=== PATIENT | female | born 1955 | race Caucasian/White ===

== ENCOUNTER 2020-05-10 13:05 | Observation (INO) ==
[2020-05-10] MEDS ORDERED: ASPIRIN CHEW 324 MG PO STA (14:01)
--- NOTE | 2020-05-10 14:18 | XRay Report ---
SINGLE VIEW CHEST CLINICAL HISTORY: Atypical chest pain. FINDINGS: An AP, portable, upright chest radiograph is compared to study dated 06/06/2015. The cardiom ediastinal silhouette is unremarkable. The lungs and pleural spaces are clear. No pneumothorax is see n. The skeletal structures are osteopenic. The bony thorax is grossly intact. IMPRESSION: No active disease in the chest. ACT 112: Negative or not required by law. Electronically signed by: Robin Jimenez M.D. 05/10/2020 2:17 PM
[2020-05-10 14:31] LABS: Basophils # (auto) 0.02 K/uL (0-0.2); Basophils % (auto) 0.2 %; Eosinophils # (auto) 0.24 K/uL (0-0.5); Eosinophils % (auto) 2.3 %; Hematocrit (blood only) 40.3 % (37-47); Immature Granulocytes # (auto) 0.03 K/uL (0.00-0.02); Immature Granulocytes % (auto) 0.3 %; Lymphocytes # (auto) 3.42 K/uL (1.2-3.4); Lymphocytes % (auto) 32.9 %; Mean Corpuscular Hemoglobin 30.4 pg (25-34); Mean Corpuscular Hgb Conc 34.7 g/dL (32-36); Mean Corpuscular Volume 87.4 fL (80-100); Mean Platelet Volume 9.3 fL (7.4-10.4); Monocytes # (auto) 0.71 K/uL (0.11-0.59); Monocytes % (auto) 6.8 %; Neutrophils # (auto) 5.99 K/uL (1.4-6.5); Neutrophils % (auto) 57.5 %; Platelet Count 319 K/uL (130-400); RDW Coefficient of Variation 14.1 % (11.5-14.5); Red Blood Count 4.61 M/uL (4.2-5.4); White Blood Count 10.41 K/uL (4.8-10.8)
--- NOTE | 2020-05-10 14:41 | Emergency Department Note ---
History of Present Illness General Chief complaint: Cardiac Assessment Stated complaint: CHEST TIGHTNESS Time Seen by Provider: 05/10/20 13:46 Source: patient History of Present Illness Provider complaint: Chest discomfort Onset (ago): day(s) Location: chest Radiation: back Severity: moderate Pain Consistency: + intermittent and + now resolved Quality: + other (Heaviness) Exacerbated By: + other (Exertion) Associated symptoms: + shortness of breath; no cough, no diaphoresis, no fever/chills and no nausea/vomiting This is a 64-year-old female presents with chest discomfort intermittently for the past 5 days. The patient describes it as a heaviness in the middle of her chest. It radiates slightly to her back but does not radiate anywhere else. It seems to be worse when she exerts herself such as climbing the stairs or walking a long distance. It is associated with shortness of breath and a feeling of warmth but no diaphoresis. She started having chest pain this morning when she woke up approximately 5 PM. She was sitting at her desk today and it got worse. She did see her well servicing rig operator last Saturday who scheduled an echocardiogram for 2 days from now when she mentioned the chest discomfort. He did also increase her blood pressure medications. The patient is not having any chest discomfort at this time. She does have a history of CHF but denies any history of CAD. There is a strong family history of CAD. She denies any fever, cough or cold symptoms, abdominal pain, vomiting, diarrhea, urinary symptoms or known exposure to COVID-19. She has never smoked. Home Medications Medication Instructions Recorded Confirmed Type carvedilol 25 mg PO BID 05/10/20 05/10/20 History citalopram 20 mg PO BID 05/10/20 05/10/20 History clobetasol See Rx Instructions .ROUTE .COMPLEX 05/10/20 05/10/20 History fexofenadine [Vidya] 180 mg PO DAILY 05/10/20 05/10/20 History fluticasone propionate 2 spray INTRANASAL DAILY 05/10/20 05/10/20 History furosemide 20 mg PO DAILY 05/10/20 05/10/20 History losartan 25 mg PO DAILY 05/10/20 05/10/20 History pedi multivit no.7-folic acid 1 tab PO BID 05/10/20 05/10/20 History [Flintstones Tab Chew] spironolactone 12.5 mg PO DAILY 05/10/20 05/10/20 History Allergies Allergy/AdvReac Type Severity Reaction Status Date / Time Sulfa (Sulfonamide Allergy Severe EDEMA OF Verified 05/10/20 19:03 Antibiotics) FACE, LIPS, TONGUE amoxicillin Allergy Intermediate HIVES Verified 05/10/20 19:03 Penicillins Allergy Intermediate SWELLING Verified 05/10/20 19:03 OF BOTTOM LIP, HIVES sertraline Allergy Mild Rash Verified 05/10/20 19:03 bupropion [From Wellbutrin] Allergy Unknown ON [facility] MED Verified 05/10/20 19:03 LIST silver sulfadiazine Allergy Unknown UNKNOWN--NOT Verified 05/10/20 19:03 ON [facility] LIST Slqaham-[id number]-Uog Reductase AdvReac Intermediate Muscle Pain Verified 05/10/20 19:03 Inhibitor Past Med/Surg History Medical History (Updated 05/10/20 @ 20:22 by Compa Stanley MD) Anxiety Congestive heart failure Depression Diabetes Dyslipidemia History of diabetes mellitus Pt reports resolved s/p gastric bypass surgery Hypertension Intestinal postoperative nonabsorption Statin intolerance Surgical History (Updated 05/10/20 @ 17:55 by Sally Narvaez PA-C) History of cardiac cath normal coronaries - 2009 History of gastric bypass History of tubal ligation Social History Smoking Status: Never smoker Hx Alcohol Use: No Hx Substance Use: No Communication Ability: Effective Beliefs That Will Affect Care: None Current Living Situation: Spouse Other Information That Helps Us Care for You: No Feels Safe at Home: Yes Safety Concerns: Feels Safe At This Time Assistive Devices: Glasses Review of Systems See HPI for pertinent positives & negatives. and A total of 10 systems reviewed and were otherwise negative Physical Exam Vital Signs Vital Signs - 24 hr 05/10/20 13:09 05/10/20 14:13 05/10/20 14:18 Temperature 36.2 C L Temperature Source Oral Pulse Rate 96 H 89 81 Pulse Rate from SpO2 Sensor 80 Respiratory Rate 18 19 21 Blood Pressure 110/76 124/77 Blood Pressure Mean 87 92 Pulse Oximetry 97 96 Oxygen Delivery Method Room Air Sepsis Recent Fever Within 48 Hours No Sepsis New/Unexplained Change in Mental Status No Sepsis Action Taken by Nursing No Action Required 05/10/20 14:20 05/10/20 14:30 05/10/20 14:40 Temperature Temperature Source Pulse Rate 81 82 82 Pulse Rate from SpO2 Sensor 81 82 82 Respiratory Rate 22 17 20 Blood Pressure 128/78 Blood Pressure Mean 94 Pulse Oximetry 95 96 95 Oxygen Delivery Method Sepsis Recent Fever Within 48 Hours Sepsis New/Unexplained Change in Mental Status Sepsis Action Taken by Nursing 05/10/20 14:50 05/10/20 15:00 05/10/20 15:05 Temperature Temperature Source Pulse Rate 80 78 Pulse Rate from SpO2 Sensor 81 79 Respiratory Rate 20 19 Blood Pressure 130/86 Blood Pressure Mean 100 Pulse Oximetry 96 96 100 Oxygen Delivery Method Room Air Sepsis Recent Fever Within 48 Hours Sepsis New/Unexplained Change in Mental Status Sepsis Action Taken by Nursing 05/10/20 15:10 05/10/20 15:20 05/10/20 15:30 Temperature Temperature Source Pulse Rate 77 82 79 Pulse Rate from SpO2 Sensor 77 83 79 Respiratory Rate 21 22 19 Blood Pressure 132/84 Blood Pressure Mean 100 Pulse Oximetry 96 96 96 Oxygen Delivery Method Sepsis Recent Fever Within 48 Hours Sepsis New/Unexplained Change in Mental Status Sepsis Action Taken by Nursing 05/10/20 15:40 05/10/20 15:50 05/10/20 16:00 Temperature Temperature Source Pulse Rate 78 77 76 Pulse Rate from SpO2 Sensor 78 77 77 Respiratory Rate 18 17 19 Blood Pressure 137/92 Blood Pressure Mean 107 Pulse Oximetry 96 97 96 Oxygen Delivery Method Sepsis Recent Fever Within 48 Hours Sepsis New/Unexplained Change in Mental Status Sepsis Action Taken by Nursing 05/10/20 16:10 05/10/20 16:20 Temperature Temperature Source Pulse Rate 79 75 Pulse Rate from SpO2 Sensor 79 75 Respiratory Rate 19 Blood Pressure Blood Pressure Mean Pulse Oximetry 96 96 Oxygen Delivery Method Sepsis Recent Fever Within 48 Hours Sepsis New/Unexplained Change in Mental Status Sepsis Action Taken by Nursing Constitutional: Vital signs reviewed. Eyes: Pupils are equal round reactive to light. Conjunctiva are noninjected. ENT: Pharynx is clear without erythema or exudate. Mucous membranes are moist. Neck supple without meningeal signs. Respiratory: Clear to auscultation bilaterally. Breath sounds are equal bilaterally. Cardiovascular: Regular rate and rhythm. No rubs or gallops. GI: Soft, nondistended and nontender. Bowel sounds are present. Musculoskeletal: No peripheral edema. No lower extremity tenderness. Integumentary: No cyanosis. or jaundice. Neurological: The patient is awake and alert. No focal deficits. Psychiatric: Normal affect. Not anxious appearing. Course Administered Medications Discontinued Medications Aspirin (Aspirin Chew 324 Mg) 324 mg PO NOW STA Stop: 05/10/20 14:02 Last Admin: 05/10/20 14:12 Dose: 324 mg Documented by: [id number] Medical Decision Making Differential Diagnosis Unstable angina, CA, GERD, anxiety, pleurisy Medical Records Attestation: I reviewed the patient's medical records. I did perform a limited focused review of portions of the patient's old chart on the electronic medical record. The patient has had no recent pertinent visits to this hospital. Home Medications Current Medication List: was personally reviewed by me Laboratory Data Attestation: I reviewed the patient's lab results. Result diagrams: 05/10/20 13:17 05/10/20 13:17 Lab Results 05/10/20 05/10/20 05/10/20 Range/Units 13:17 13:17 13:17 WBC 10.41 (4.8-10.8) K/uL RBC 4.61 (4.2-5.4) M/uL Hgb 14.0 (12.0-16.0) g/dL Hct 40.3 (37-47) % MCV 87.4 (80-100) fL MCH 30.4 (25-34) pg MCHC 34.7 (32-36) g/dL RDW Std Deviation 45.0 (36.4-46.3) fL RDW Coeff of Andrea 14.1 (11.5-14.5) % Plt Count 319 (130-400) K/uL MPV 9.3 (7.4-10.4) fL Immature Gran % (Auto) 0.3 % Neut % (Auto) 57.5 % Lymph % (Auto) 32.9 % [place] % (Auto) 6.8 % Eos % (Auto) 2.3 % Baso % (Auto) 0.2 % Neut # (Auto) 5.99 (1.4-6.5) K/uL Lymph # (Auto) 3.42 H (1.2-3.4) K/uL [place] # (Auto) 0.71 H (0.11-0.59) K/uL Eos # (Auto) 0.24 (0-0.5) K/uL Baso # (Auto) 0.02 (0-0.2) K/uL Immature Gran # (Auto) 0.03 H (0.00-0.02) K/uL PT 9.6 (9.0-12.0) Seconds INR 0.9 (0.9-1.1) APTT 28.0 (21.0-31.0) Seconds PTT Ratio 1.1 Sodium 138 (136-145) mmol/L Potassium 3.7 (3.5-5.1) mmol/L Chloride 106 (98-107) mmol/L Carbon Dioxide 26 (21-32) mmol/L Anion Gap 6.0 (3-11) BUN 19 H (7-18) mg/dl Creatinine 0.85 (0.6-1.2) mg/dl Est Cr Clr Drug Dosing 68.4 ml/min Est GFR ( Amer) 84.5 Est GFR (Non-Af Amer) 72.9 BUN/Creatinine Ratio 22.2 H (10-20) Glucose 135 H (70-99) mg/dl Calcium 9.2 (8.5-10.1) mg/dl Total Bilirubin 0.3 (0.2-1) mg/dl AST 17 (15-37) U/L ALT 29 (12-78) U/L Alkaline Phosphatase 133 H (45-117) U/L Troponin I < 0.015 (0-0.045) ng/ml Total Protein 7.2 (6.4-8.2) gm/dl Albumin 3.9 (3.4-5.0) gm/dl Globulin 3.3 (2.5-4.0) gm/dl Albumin/Globulin Ratio 1.2 (0.9-2) Lipase 119 (73-393) U/L COVID-19 Eval Order SARS-CoV-2, RNA, NAAT (NEGATIVE) 05/10/20 05/10/20 Range/Units 15:22 15:22 WBC (4.8-10.8) K/uL RBC (4.2-5.4) M/uL Hgb (12.0-16.0) g/dL Hct (37-47) % MCV (80-100) fL MCH (25-34) pg MCHC (32-36) g/dL RDW Std Deviation (36.4-46.3) fL RDW Coeff of Andrea (11.5-14.5) % Plt Count (130-400) K/uL MPV (7.4-10.4) fL Immature Gran % (Auto) % Neut % (Auto) % Lymph % (Auto) % [place] % (Auto) % Eos % (Auto) % Baso % (Auto) % Neut # (Auto) (1.4-6.5) K/uL Lymph # (Auto) (1.2-3.4) K/uL [place] # (Auto) (0.11-0.59) K/uL Eos # (Auto) (0-0.5) K/uL Baso # (Auto) (0-0.2) K/uL Immature Gran # (Auto) (0.00-0.02) K/uL PT (9.0-12.0) Seconds INR (0.9-1.1) APTT (21.0-31.0) Seconds PTT Ratio Sodium (136-145) mmol/L Potassium (3.5-5.1) mmol/L Chloride (98-107) mmol/L Carbon Dioxide (21-32) mmol/L Anion Gap (3-11) BUN (7-18) mg/dl Creatinine (0.6-1.2) mg/dl Est Cr Clr Drug Dosing ml/min Est GFR ( Amer) Est GFR (Non-Af Amer) BUN/Creatinine Ratio (10-20) Glucose (70-99) mg/dl Calcium (8.5-10.1) mg/dl Total Bilirubin (0.2-1) mg/dl AST (15-37) U/L ALT (12-78) U/L Alkaline Phosphatase (45-117) U/L Troponin I (0-0.045) ng/ml Total Protein (6.4-8.2) gm/dl Albumin (3.4-5.0) gm/dl Globulin (2.5-4.0) gm/dl Albumin/Globulin Ratio (0.9-2) Lipase (73-393) U/L COVID-19 [facility] SARS-CoV-2, RNA, NAAT NEGATIVE (NEGATIVE) Imaging Data Radiologist's Impression: SINGLE VIEW CHEST CLINICAL HISTORY: Atypical chest pain. FINDINGS: An AP, portable, upright chest radiograph is compared to study dated 06/06/2015. The cardiomediastinal silhouette is unremarkable. The lungs and pleural spaces are clear. No pneumothorax is seen. The skeletal structures are osteopenic. The bony thorax is grossly intact. IMPRESSION: No active disease in the chest. ACT 112: Negative or not required by law. Electronically signed by: Robin Jimenez M.D. 05/10/2020 2:17 PM Dictated: 05/10/201416 Transcribed: 05/10/201416 ECG Data Attestation: I personally reviewed and interpreted this ECG as follows: Indication: + chest pain Rate (beats per minute): 81 Rhythm: + normal sinus ECG [place]: + Normal ECG ST segments: no ST elevation ECG Findings: + Other (Flattened T waves in the anterior and lateral leads.); no PVCs Comparison ECG Date: from (June 06, 2015) Change: the following changes noted (Prolonged QT was present on previous EKG. T waves are more prominent on prior EKG.) MDM Narrative I did evaluate the patient as noted above. The patient is presenting with exertional chest pain. She is currently chest pain-free. IV access was established. I did place an order for continuous cardiac monitoring. The mon itor showed normal sinus rhythm at a rate of 83 bpm. I did order and personally review the patient's 12-lead EKG as described above. She has no acute ischemic changes on her EKG other than some nonspecific flattening of her T waves. I did order and personally reviewed the images of the patient's chest x-ray as described above. This is unremarkable. I did order and review the patient's blood work as noted in the electronic medical record. CBC and electrolytes are unremarkable. Troponin is negative. LFTs and lipase are unremarkable. I did treat the patient with aspirin p.o. I did reassess her. She is not having any discomfort at this time. I did recommend hospitalization for repeat cardiac biomarkers and further evaluation. She was agreeable. Rapid SARS testing was negative. I did discuss case with the hospitalist and special education case manager. Impression & Plan Chest pain, exertional, History of CHF (congestive heart failure) Discharge Plan Visit Data Chief Complaint: Cardiac Assessment Stated Complaint: CHEST TIGHTNESS ED Provider: Compa Stanley Discharge Problem: Chest pain, exertional, History of CHF (congestive heart failure) Patient Disposition: Admitted As Inpatient Discharge Instructions Interventions: ED Discharge Assessment Last Done: 05/10/20 19:30
[2020-05-10 14:42] LABS: INR 0.9 (0.9-1.1); Partial Thromboplastin Ratio 1.1; Prothrombin Time 9.6 Seconds (9.0-12.0)
[2020-05-10 14:48] LABS: Alanine Aminotransferase 29 U/L (12-78); Albumin Level 3.9 gm/dl (3.4-5.0); Aspartate Aminotransferase 17 U/L (15-37); BUN Creatinine Ratio 22.2 (10-20); Blood Urea Nitrogen 19 mg/dl (7-18); Calcium 9.2 mg/dl (8.5-10.1); Carbon Dioxide 26 mmol/L (21-32); Chloride 106 mmol/L (98-107); Creatinine Clr Calc Pharmacy 68.4 ml/min; Est GFR (African American) 84.5; Est GFR (Non-African American) 72.9; Glucose 135 mg/dl (70-99); Lipase 119 U/L (73-393); Potassium 3.7 mmol/L (3.5-5.1); Sodium 138 mmol/L (136-145)
[2020-05-10 14:52] LABS: Albumin Globulin Ratio 1.2 (0.9-2); Alkaline Phosphatase 133 U/L (45-117); Bilirubin,Total 0.3 mg/dl (0.2-1); Globulin 3.3 gm/dl (2.5-4.0); Total Protein 7.2 gm/dl (6.4-8.2); Troponin I < 0.015 ng/ml (0-0.045)
--- NOTE | 2020-05-10 17:21 | History & Physical Report ---
Date of Service May 10, 2020 Assessment & Plan (1) Chest pain: Non-specific chest pressure x 5 days - worse today. Unclear if cardiac etiology but pt with history of CHF that has been well-managed - Monitor on telemetry - Serial troponin - EKG if recurrent chest discomfort - Check ECHO - Consult cardiology - will make pt NPO after midnight for potential additional work-up tomorrow pending results (2) History of CHF (congestive heart failure): - Continue outpatient regimen - losartan, coreg, furosemide and aldactone (3) Dyslipidemia: Statin intolerance so not currently taking any medications for this (4) Hypertension: - Continue outpatient meds and monitor (5) Anxiety: - Continue Celexa as previously taking Patient seen and examined with collaborating physician, Dr. Mcghee. Plan of care discussed and as outlined above. DVT Prophylaxis: Lovenox Code Status: Full code Yvette Narvaez PA-C History of Present Illness Chief Complaint: Chest pressure x 5 days Primary Care Provider: Ajit Richards MD This is a 64 y/o female with a PMH of non-ischemic cardiomyopathy in 2007, CHF, HTN, dyslipidemia, and prior gastric bypass surgery who present to the ED today with progressive chest pressure and tightness over the past five days. Pt reports that she has not been feeling right for the past few weeks, mainly being more tired than usual and "wonky" (lightheaded) at times, especially with position changes. She saw her cardiology provider on 04/29/20 and losartan was increased from 12.5 mg to 25 mg daily. She did not noticed significant improvement with the med change. Last (5 days ago), she started with intermittent chest pressure and tightness although denies overt chest pain. This discomfort is worse with exertion. She has also noted REAL, especially with doing steps, and occasional orthopnea. Not sleeping well recently but unsure specifically why. She has noted hot flashes and "overheating" recently but not sure that it's associated with her other symptoms. She denies cough, nasal congestion, ST, or peripheral edema. She has ongoing sinus issues. Chronic headaches although worse the past month. She was also recently prescribed phentermine, which she was taking 4 mg at 4 pm daily. However, she was advised to stop this by cardiology at her last appointment, which she has done. Allergies Allergy/AdvReac Type Severity Reaction Status Date / Time Sulfa (Sulfonamide Allergy Severe EDEMA OF Verified 05/10/20 19:03 Antibiotics) FACE, LIPS, TONGUE amoxicillin Allergy Intermediate HIVES Verified 05/10/20 19:03 Penicillins Allergy Intermediate SWELLING Verified 05/10/20 19:03 OF BOTTOM LIP, HIVES sertraline Allergy Mild Rash Verified 05/10/20 19:03 bupropion [From Wellbutrin] Allergy Unknown ON [facility] MED Verified 05/10/20 19:03 LIST silver sulfadiazine Allergy Unknown UNKNOWN--NOT Verified 05/10/20 19:03 ON [facility] LIST Jdkwcsu-Iyp-Ihz Reductase AdvReac Intermediate Muscle Pain Verified 05/10/20 19:03 Inhibitor Home Medications Medication Instructions Recorded Confirmed Type carvedilol 25 mg PO BID 05/10/20 05/10/20 History citalopram 20 mg PO BID 05/10/20 05/10/20 History clobetasol See Rx Instructions .ROUTE .COMPLEX 05/10/20 05/10/20 History fexofenadine [Vidya] 180 mg PO DAILY 05/10/20 05/10/20 History fluticasone propionate 2 spray INTRANASAL DAILY 05/10/20 05/10/20 History furosemide 20 mg PO DAILY 05/10/20 05/10/20 History losartan 25 mg PO DAILY 05/10/20 05/10/20 History pedi multivit no.7-folic acid 1 tab PO BID 05/10/20 05/10/20 History [Flintstones Tab Chew] spironolactone 12.5 mg PO DAILY 05/10/20 05/10/20 History Past Med/Surg History Medical History (Updated 05/10/20 @ 20:22 by Compa Stanley MD) Anxiety Congestive heart failure Depression Diabetes Dyslipidemia History of diabetes mellitus Pt reports resolved s/p gastric bypass surgery Hypertension Intestinal postoperative nonabsorption Statin intolerance Surgical History (Updated 05/10/20 @ 17:55 by Sally Narvaez PA-C) History of cardiac cath normal coronaries - 2009 History of gastric bypass History of tubal ligation Social History Smoking Status: Never smoker Hx Alcohol Use: No Hx Substance Use: No Communication Ability: Effective Beliefs That Will Affect Care: None Current Living Situation: Spouse Other Information That Helps Us Care for You: No Feels Safe at Home: Yes Safety Concerns: Feels Safe At This Time Assistive Devices: Glasses Review of Systems Review of Systems: All systems reviewed & are unremarkable except as noted in HPI & below Constitutional: + sweats and + fatigue; no fever, no chills and no weight loss Eyes: + problem reported (increased floaters); no diplopia and no worsening vision Ear, Nose, Mouth, Throat: no nasal congestion, no nasal discharge, no sore throat and no dysphagia Respiratory: no cough, no chest congestion, no pain on inspiration and no wheezing Cardiovascular: as per Subjective / HPI and + lightheadedness; no palpitations, no syncope and no edema Gastrointestinal: no abdominal pain, no nausea, no vomiting, no diarrhea/loose stools and no blood in stools Genitourinary: no dysuria, no urinary frequency and no hematuria Musculoskeletal: no back pain and no neck pain Integumentary: + rash (on hands - treating with clobetasol cream) Neurologic: + dizziness and + headache(s); no paresthesia and no tremor(s) Psychiatric: no depression and no anxiety Physical Exam Constitutional: WD/WN, vitals as above + not well nourished and no acute distress Eyes: + anicteric sclerae; no corneal abnormality Neck: trachea midline Respiratory: no respiratory distress and no labored breathing Auscultation: lungs clear to auscultation bilaterally; no rales, no rhonchi and no wheezes Cardiovascular: Rate/Rhythm: regular rate and regular rhythm Heart Sounds: no gallop, no murmur and no cardiac rub Vessels: dorsalis pedis pulses present and radial pulses present; no carotid bruit Extremities: no calf tenderness and no pedal edema Gastrointestinal (Abdomen): Inspection/Auscultation: normal bowel sounds; abdomen not distended Percussion/Palpation: abdomen soft; abdomen nontender Musculoskeletal: Head/Neck/Chest: normocephalic, head atraumatic and neck supple Extremities: no cyanosis and no clubbing Skin: normal turgor; no jaundice Neurologic: moves all extremities; no focal motor deficits Psychiatric: A+Ox3, euthymic affect Results & Data Results & Data ([facility]) Vital Signs (Past 12 Hours) Vital Signs Temp Pulse Resp BP Pulse Ox 05/10/20 15:05 100 05/10/20 15:00 78 19 130/86 96 05/10/20 14:50 80 20 96 05/10/20 14:40 82 20 95 05/10/20 14:30 82 17 128/78 96 05/10/20 14:20 81 22 95 05/10/20 14:18 81 21 124/77 96 05/10/20 14:13 89 19 05/10/20 13:09 36.2 C L 96 H 18 110/76 97 Laboratory Results Laboratory Results - last 24 hr 05/10/20 05/10/20 05/10/20 13:17 13:17 13:17 WBC 10.41 RBC 4.61 Hgb 14.0 Hct 40.3 MCV 87.4 MCH 30.4 MCHC 34.7 RDW Std Deviation 45.0 RDW Coeff of Andrea 14.1 Plt Count 319 MPV 9.3 Immature Gran % (Auto) 0.3 Neut % (Auto) 57.5 Lymph % (Auto) 32.9 [place] % (Auto) 6.8 Eos % (Auto) 2.3 Baso % (Auto) 0.2 Neut # (Auto) 5.99 Lymph # (Auto) 3.42 H [place] # (Auto) 0.71 H Eos # (Auto) 0.24 Baso # (Auto) 0.02 Immature Gran # (Auto) 0.03 H PT 9.6 INR 0.9 APTT 28.0 PTT Ratio 1.1 Sodium 138 Potassium 3.7 Chloride 106 Carbon Dioxide 26 Anion Gap 6.0 BUN 19 H Creatinine 0.85 Est Cr Clr Drug Dosing 68.4 Est GFR ( Amer) 84.5 Est GFR (Non-Af Amer) 72.9 BUN/Creatinine Ratio 22.2 H Glucose 135 H Calcium 9.2 Total Bilirubin 0.3 AST 17 ALT 29 Alkaline Phosphatase 133 H Troponin I < 0.015 Total Protein 7.2 Albumin 3.9 Globulin 3.3 Albumin/Globulin Ratio 1.2 Lipase 119 COVID-19 Eval Order SARS-CoV-2, RNA, NAAT 05/10/20 05/10/20 15:22 15:22 WBC RBC Hgb Hct MCV MCH MCHC RDW Std Deviation RDW Coeff of Andrea Plt Count MPV Immature Gran % (Auto) Neut % (Auto) Lymph % (Auto) [place] % (Auto) Eos % (Auto) Baso % (Auto) Neut # (Auto) Lymph # (Auto) [place] # (Auto) Eos # (Auto) Baso # (Auto) Immature Gran # (Auto) PT INR APTT PTT Ratio Sodium Potassium Chloride Carbon Dioxide Anion Gap BUN Creatinine Est Cr Clr Drug Dosing Est GFR ( Amer) Est GFR (Non-Af Amer) BUN/Creatinine Ratio Glucose Calcium Total Bilirubin AST ALT Alkaline Phosphatase Troponin I Total Protein Albumin Globulin Albumin/Globulin Ratio Lipase COVID[facility]19 [facility], RNA, NAAT NEGATIVE Diagnostic Findings Chest X-ray 05/10/20 - IMPRESSION: No active disease in the chest. Medications Administered Discontinued Medications Aspirin (Aspirin Chew 324 Mg) 324 mg PO NOW STA Stop: 05/10/20 14:02 Last Admin: 05/10/20 14:12 Dose: 324 mg Documented by: [id number] Code Status & VTE Plan VTE Prophylaxis Plan VTE Prophylaxis will be ordered: Yes Supervising Physician Co-Signing Physician Notes I have seen and examined the patient and have discussed the case with the provider above. I agree with the assessment and plan as stated. The patient is a 64-year-old female with a history of nonischemic cardiomyopathy in 2007 status post prior gastric bypass surgery who presents with progressive dyspnea on exertion and fatigue for the last 10 days. She feels these symptoms were brought on after her losartan was switched from 12.5 to 25 mg daily. This increase occurred as a result of an elevation in her blood pressure after she started 3 weeks of phentermine for weight loss. Since this time she has also developed a chest pressure that is not as significant to her as the fatigue and dyspnea on exertion. She endorses hot flashes and other sympathomimetic effects likely a result of the phentermine. On exam she is euvolemic oxygenating well on room air and speaking in full complete sentences. Lungs are clear to auscultation throughout. No peripheral edema is present. Cardiac exam is normal with no evidence of JVD. Additional physical exam findings as above. Agree with rule out ACS overnight with serial cardiac enzymes and consider possible stress test in a.m. Cardiac consult in a.m. DO Taz (1) Chest pain Chest pain type: unspecified Qualified Code(s): R07.9 - Chest pain, unspecified (2) Hypertension Hypertension type: essential hypertension Qualified Code(s): I10 - Essential (primary) hypertension
[2020-05-10] MEDS ORDERED: ACETAMINOPHEN 325 MG TAB PO PRN (19:32)
[2020-05-10] MEDS ORDERED: ENOXAPARIN INJ 40 MG/0.4 ML SYR SQ SCH (20:00)
[2020-05-10] MEDS: CITALOPRAM 20 MG TAB PO SCH (21:38)
[2020-05-10] MEDS: MULTIVITAMIN CHEWABLE TAB PO SCH (21:39)
[2020-05-10] MEDS: carvediloL 25 MG TAB PO SCH (21:39)
[2020-05-10] MEDS ORDERED: MELATONIN 3 MG TAB PO ONE (22:33)
--- NOTE | 2020-05-11 06:30 | Electrocardiogram Report ---
Test Reason : Blood Pressure : / mmHG Vent. Rate : 081 BPM Atrial Rate : 081 BPM P-R Int : 178 ms QRS Dur : 088 ms QT Int : 400 ms P-R-T Axes : 057 036 046 degrees QTc Int : 464 ms Normal sinus rhythm Nonspecific T wave abnormality Abnormal ECG When compared with ECG of 06-JUN-2015 14:24, Nonspecific T wave abnormality now evident in Lateral leads Confirmed by Jose Luis Liz ([id number]) on 05/11/2020 6:29:48 AM Referred By: Confirmed By:Jose Luis Liz
[2020-05-11] MEDS: MULTIVITAMIN CHEWABLE TAB PO SCH (07:37)
[2020-05-11] MEDS: CITALOPRAM 20 MG TAB PO SCH (07:37)
[2020-05-11] MEDS: carvediloL 25 MG TAB PO SCH (07:37)
[2020-05-11] MEDS ORDERED: LOSARTAN POTASSIUM 25 MG TAB PO SCH (09:00)
[2020-05-11] MEDS ORDERED: SPIRONOLACTONE 12.5 MG TAB PO SCH (09:00)
[2020-05-11] MEDS ORDERED: FUROSEMIDE 20 MG TAB PO SCH (09:00)
[2020-05-11] MEDS ORDERED: FLUTICASONE PROPIONATE NA SPR 16 GM BTL SCH (09:00)
--- NOTE | 2020-05-11 09:22 | Cardiology Consultation ---
Date of Consultation May 11, 2020 Assessment & Plan (1) Chest pain, exertional: (2) Anxiety: (3) Dyslipidemia: (4) Hypertension: (5) NICM (nonischemic cardiomyopathy): exertional chest discomfort and sob since being started on losartan last week EKG unremarkable Trop negative x 3 no electrolyte abnormalities resting echocardiogram without wall motion abnormality stress test was nonischemic no cardiac source for symptoms found recommend holding losartan for now f/u with cardiology as an outpatient in 1 week ok to d/c to home from a cardiac standpoint History of Present Illness Attending Physician: Carole Bonilla MD History of Present Illness Mrs. Espinosa Is a very pleasant 64-year-old woman who follows with Blaine Valladares of our Cardiology practice. She was recently seen as an outpatient started on losartan for better blood pressure control. She states that since starting that medicine she has been noticing some chest heaviness and dyspnea with exertion. She states that whenever she tries to walk a significant distance she becomes severely short of breath and has to stop and rest. On the she became concerned and came into the emergency department. So far, ischemic workup was unremarkable and she denies any complaints at rest currently. Past medical hx per most recent cardiology visit: 1. Systolic heart failure secondary to a nonischemic cardiomyopathy. EF previously 25%, resolved 2. Normal coronaries by angiography documented in April 2009. 3. Type II diabetes mellitus 4. Hypertension 5. Dyslipidemia 6. Statin intolerance 7. Iron deficiency anemia 8. Obesity 9. Status post laparoscopic Sergio-en-Y gastric bypass surgery on 11/08/16. 10. NAFLD/MILLER 11. Anxiety 12. Depression 13. Insomnia 14. Vitamin D deficienicy 15. Sciatica 16. Tubal ligation Allergies Allergy/AdvReac Type Severity Reaction Status Date / Time Sulfa (Sulfonamide Allergy Severe EDEMA OF Verified 05/10/20 19:03 Antibiotics) FACE, LIPS, TONGUE amoxicillin Allergy Intermediate HIVES Verified 05/10/20 19:03 Penicillins Allergy Intermediate SWELLING Verified 05/10/20 19:03 OF BOTTOM LIP, HIVES sertraline Allergy Mild Rash Verified 05/10/20 19:03 bupropion [From Wellbutrin] Allergy Unknown ON [facility] MED Verified 05/10/20 19:03 LIST silver sulfadiazine Allergy Unknown UNKNOWN--NOT Verified 05/10/20 19:03 ON [facility] LIST [id number] Reductase AdvReac Intermediate Muscle Pain Verified 05/10/20 19:03 Inhibitor Home Medications Medication Instructions Recorded Confirmed Type Flintstones Tab Chew 1 tab PO BID 05/10/20 05/10/20 History carvedilol 25 mg PO BID 05/10/20 05/10/20 History citalopram 20 mg PO BID 05/10/20 05/10/20 History clobetasol See Rx Instructions .ROUTE .COMPLEX 05/10/20 05/10/20 History fexofenadine 180 mg PO DAILY 05/10/20 05/10/20 History fluticasone propionate 2 spray INTRANASAL DAILY 05/10/20 05/10/20 History furosemide 20 mg PO DAILY 05/10/20 05/10/20 History spironolactone 12.5 mg PO DAILY 05/10/20 05/10/20 History Patient History Medical History Anxiety Congestive heart failure Depression Diabetes Dyslipidemia History of diabetes mellitus Pt reports resolved s/p gastric bypass surgery Hypertension Intestinal postoperative nonabsorption Statin intolerance Surgical History History of cardiac cath normal coronaries - 2009 History of gastric bypass History of tubal ligation Social History Smoking Status: Never smoker Hx Alcohol Use: No Hx Substance Use: No Communication Ability: Effective Beliefs That Will Affect Care: None Current Living Situation: Spouse Other Information That Helps Us Care for You: No Feels Safe at Home: Yes Safety Concerns: Feels Safe At This Time Assistive Devices: None Review of Systems Review of Systems: All systems reviewed & are unremarkable except as noted in HPI & below Physical Exam Physical Exam: General: Awake, alert and oriented x 3. No acute distress. HEENT: Normocephalic, atraumatic. Pupils equal, round and reactive to light and accommodation. Extraocular muscles are intact. Anicteric sclera. Moist mucous membranes. Neck: No JVD. No bruit. Cardiovascular: Regular. Positive S-4. Normal S-1 and S-2. No S-3. No murmurs or rubs. Pulmonary: Clear to auscultation B/L. No rales, rhonchi or wheezing Abdomen: Bowel sounds x 4, soft. No rebound, guarding or tenderness. No organomegaly. Extremities: No clubbing, cyanosis or edema. +2 pedal pulses bilaterally. Skin: Warm and dry. Results & Data ([facility]) Vital Signs (Past 12 Hours) Vital Signs Temp Pulse Pulse Resp BP BP Pulse Ox 05/11/20 08:00 80 05/11/20 07:49 36.7 C 65 18 146/86 H 97 05/11/20 07:40 73 153/75 H 05/11/20 03:52 36.6 C 84 20 140/85 96 05/11/20 00:38 85 05/10/20 23:00 36.5 C 83 20 93/57 L 95 Laboratory Results Laboratory Results - last 24 hr 05/10/20 05/10/20 05/10/20 13:17 13:17 13:17 WBC 10.41 RBC 4.61 Hgb 14.0 Hct 40.3 MCV 87.4 MCH 30.4 MCHC 34.7 RDW Std Deviation 45.0 RDW Coeff of Andrea 14.1 Plt Count 319 MPV 9.3 Immature Gran % (Auto) 0.3 Neut % (Auto) 57.5 Lymph % (Auto) 32.9 Talbot % (Auto) 6.8 Eos % (Auto) 2.3 Baso % (Auto) 0.2 Neut # (Auto) 5.99 Lymph # (Auto) 3.42 H Talbot # (Auto) 0.71 H Eos # (Auto) 0.24 Baso # (Auto) 0.02 Immature Gran # (Auto) 0.03 H PT 9.6 INR 0.9 APTT 28.0 PTT Ratio 1.1 Sodium 138 Potassium 3.7 Chloride 106 Carbon Dioxide 26 Anion Gap 6.0 BUN 19 H Creatinine 0.85 Est Cr Clr Drug Dosing 68.4 Est GFR ( Amer) 84.5 Est GFR (Non-Af Amer) 72.9 BUN/Creatinine Ratio 22.2 H Glucose 135 H Calcium 9.2 Total Bilirubin 0.3 AST 17 ALT 29 Alkaline Phosphatase 133 H Troponin I < 0.015 Total Protein 7.2 Albumin 3.9 Globulin 3.3 Albumin/Globulin Ratio 1.2 Lipase 119 COVID-19 Eval Order SARS-CoV-2, RNA, NAAT 05/10/20 05/10/2021 15:22 15:22 20:14 WBC RBC Hgb Hct MCV MCH MCHC RDW Std Deviation RDW Coeff of Andrea Plt Count MPV Immature Gran % (Auto) Neut % (Auto) Lymph % (Auto) Talbot % (Auto) Eos % (Auto) Baso % (Auto) Neut # (Auto) Lymph # (Auto) Talbot # (Auto) Eos # (Auto) Baso # (Auto) Immature Gran # (Auto) PT INR APTT PTT Ratio Sodium Potassium Chloride Carbon Dioxide Anion Gap BUN Creatinine Est Cr Clr Drug Dosing Est GFR ( Amer) Est GFR (Non-Af Amer) BUN/Creatinine Ratio Glucose Calcium Total Bilirubin AST ALT Alkaline Phosphatase Troponin I < 0.015 Total Protein Albumin Globulin Albumin/Globulin Ratio Lipase COVID-19 Eval [facility] SARS-CoV-2, RNA, NAAT NEGATIVE 05/11/20 01:37 WBC RBC Hgb Hct MCV MCH MCHC RDW Std Deviation RDW Coeff of Andrea Plt Count MPV Immature Gran % (Auto) Neut % (Auto) Lymph % (Auto) Talbot % (Auto) Eos % (Auto) Baso % (Auto) Neut # (Auto) Lymph # (Auto) Talbot # (Auto) Eos # (Auto) Baso # (Auto) Immature Gran # (Auto) PT INR APTT PTT Ratio Sodium Potassium Chloride Carbon Dioxide Anion Gap BUN Creatinine Est Cr Clr Drug Dosing Est GFR ( Amer) Est GFR (Non-Af Amer) BUN/Creatinine Ratio Glucose Calcium Total Bilirubin AST ALT Alkaline Phosphatase Troponin I < 0.015 Total Protein Albumin Globulin Albumin/Globulin Ratio Lipase COVID-19 Eval Order SARS-CoV-2, RNA, NAAT Medications Administered Current Inpatient Medications Acetaminophen (Acetaminophen 325 Mg Tab) 650 mg PO Q4H PRN PRN Reason: Pain or Fever Stop: 06/09/20 19:31 Last Admin: 05/11/20 06:21 Dose: 650 mg Documented by: Carvedilol (Carvedilol 25 Mg Tab) 25 mg PO BID [facility] Stop: 06/09/20 20:59 Last Admin: 05/11/20 07:37 Dose: 25 mg Documented by: Citalopram Hydrobromide (Citalopram 20 Mg Tab) 20 mg PO BID [facility] Stop: 06/09/20 20:59 Last Admin: 05/11/20 07:37 Dose: 20 mg Documented by: Enoxaparin Sodium (Enoxaparin Inj 40 Mg/0.4 Ml Syr) 40 mg SQ Q24H [facility] Stop: 06/09/20 19:59 Last Admin: 05/10/20 21:38 Dose: 40 mg Documented by: Fluticasone Propionate (Fluticasone Propionate Na Spr 16 Gm Btl) 2 sprays NA DAILY [facility] Stop: 06/10/20 08:59 Last Admin: 05/11/20 07:37 Dose: 2 sprays Documented by: Furosemide (Furosemide 20 Mg Tab) 20 mg PO DAILY [facility] Stop: 06/10/20 08:59 Last Admin: 05/11/20 07:37 Dose: 20 mg Documented by: Losartan Potassium (Losartan Potassium 25 Mg Tab) 25 mg PO DAILY [facility] Stop: 06/10/20 08:59 Last Admin: 05/11/20 07:37 Dose: 25 mg Documented by: Multivitamins/Folic Acid/Vitamin C (Multivitamin Chewable Tab) 1 tab PO BID [facility] Stop: 06/09/20 20:59 Last Admin: 05/11/20 07:37 Dose: 1 tab Documented by: Spironolactone (Spironolactone 12.5 Mg Tab) 12.5 mg PO DAILY [facility] Stop: 06/10/20 08:59 Last Admin: 05/11/20 07:37 Dose: 12.5 mg Documented by: (1) Hypertension Hypertension type: essential hypertension Qualified Code(s): I10 - Essential (primary) hypertension
[2020-05-11] MEDS ORDERED: PERFLUTREN LIPID MICROSPHERE (DEFINITY) IV ONE (09:30)
[2020-05-11] MEDS: ATROPINE SULFATE 0.1 MG/ML 10ML SYR IV ONE ×2 (09:55→10:15)
[2020-05-11] MEDS: DOBUTamine HCL 12.5 MG/ML 20 ML VIAL IV ONE ×2 (09:55→10:17)
[2020-05-11] MEDS: METOPROLOL TARTRATE 1 MG/ML VIAL IV ONE ×2 (09:55→10:18)
[2020-05-11 10:28] LABS: Chol HDL Ratio 5; Cholesterol 210 mg/dl (0-200); HDL Cholesterol 46 mg/dl; LDL Cholesterol Calculated 126 mg/dl; Triglycerides 188 mg/dl (0-150); VLDL Cholesterol 38 mg/dl
--- NOTE | 2020-05-11 12:12 | Hospitalist Progress Note ---
Date of Service May 11, 2020 Assessment & Plan (1) Chest pain: Non-specific chest pressure x 5 days -worse on the day of admission. Unclear if cardiac etiology but pt with history of CHF that has been well- managed Serial EKG and cardiac enzymes are unremarkable ECHO showed: Normal LV chamber size with mild concentric LVH, low normal LV systolic function with borderline global hypokinesis EF of 50 to 55%, grade 1 diastolic dysfunction and no significant valvular pathology. Appreciate cardiology input and recommendation Consult cardiology - will make pt NPO after midnight for potential additional work-up tomorrow pending results Dobutamine stress echo did not show any ischemia and/or arrhythmias with normal heart rate and blood pressure response to infusion and chest pain was not reported at peak heart rate Will be discharged home this afternoon (2) History of CHF (congestive heart failure): - Continue outpatient regimen - losartan, coreg, furosemide and aldactone (3) Dyslipidemia: Statin intolerance so not currently taking any medications for this (4) Hypertension: Her losartan will be on hold She will have a follow-up appointment with viscose department worker in 1 week (5) Anxiety: - Continue Celexa as previously taking Patient seen and examined with collaborating physician, Dr. Mcghee. Plan of care discussed and as outlined above. DVT Prophylaxis: Lovenox Code Status: Full code Will be discharged home this afternoon Admission and Anticipated Discharge Date Admission Date: May 10, 2020 Subjective 05/11/2020 The patient was seen and examined in medical telemetry unit He has history of nonischemic cardiomyopathy, hypertension, hyperlipidemia and anxiety disorder and was admitted with exertional chest pain She denies any more pain since this morning She has had negative stress test this morning Review of Systems Review of Systems: All systems reviewed and are unremarkable except as noted below Physical Exam Physical Exam: Lying in bed comfortably Constitutional: well developed, well nourished and + obese; not ill appearing Eyes: PERRL, conjunctivae normal, anicteric sclerae ENMT: external ear and nose normal, oropharynx normal Neck: trachea midline, no thyromegaly Respiratory: no respiratory distress Auscultation: lungs clear to auscultation bilaterally Cardiovascular: Rate/Rhythm: regular rate and regular rhythm Heart Sounds: no murmur Extremities: no edema Gastrointestinal (Abdomen): Inspection/Auscultation: normal bowel sounds; abdomen not distended Percussion/Palpation: abdomen soft; abdomen nontender Musculoskeletal: No acute arthritis in any joint Neurologic: Alert, awake and oriented x3. No focal sensory deficit appreciated Psychiatric: A+Ox3, euthymic affect Lymphatic: no cervical or axillary lymphadenopathy Results & Data Results & Data ([facility]) Vital Signs (Past 12 Hours) Vital Signs Temp Pulse Pulse Resp BP BP Pulse Ox 05/11/20 08:00 80 05/11/20 07:49 36.7 C 65 18 146/86 H 97 05/11/20 07:40 73 153/75 H 05/11/20 03:52 36.6 C 84 20 140/85 96 05/11/20 00:38 85 Laboratory Results Short CBC 05/10/20 Range/Units 13:17 WBC 10.41 (4.8-10.8) K/uL Hgb 14.0 (12.0-16.0) g/dL Hct 40.3 (37-47) % Plt Count 319 (130-400) K/uL BMP 05/10/20 13:17 Sodium 138 Potassium 3.7 Chloride 106 Carbon Dioxide 26 BUN 19 H Creatinine 0.85 Glucose 135 H Calcium 9.2 Cardiac Enzymes 05/10/20 05/10/20 05/11/20 Range/Units 13:17 20:14 01:37 Troponin I < 0.015 < 0.015 < 0.015 (0-0.045) ng/ml Liver Function 05/10/20 Range/Units 13:17 Total Bilirubin 0.3 (0.2-1) mg/dl AST 17 (15-37) U/L ALT 29 (12-78) U/L Alkaline Phosphatase 133 H (45-117) U/L Albumin 3.9 (3.4-5.0) gm/dl Medications Administered Current Inpatient Medications Acetaminophen (Acetaminophen 325 Mg Tab) 650 mg PO Q4H PRN PRN Reason: Pain or Fever Stop: 06/09/20 19:31 Last Admin: 05/11/20 06:21 Dose: 650 mg Documented by: Carvedilol (Carvedilol 25 Mg Tab) 25 mg PO BID [facility] Stop: 06/09/20 20:59 Last Admin: 05/11/20 07:37 Dose: 25 mg Documented by: Citalopram Hydrobromide (Citalopram 20 Mg Tab) 20 mg PO BID [facility] Stop: 06/09/20 20:59 Last Admin: 05/11/20 07:37 Dose: 20 mg Documented by: Enoxaparin Sodium (Enoxaparin Inj 40 Mg/0.4 Ml Syr) 40 mg SQ Q24H [facility] Stop: 06/09/20 19:59 Last Admin: 05/10/20 21:38 Dose: 40 mg Documented by: Fluticasone Propionate (Fluticasone Propionate Na Spr 16 Gm Btl) 2 sprays NA DAILY [facility] Stop: 06/10/20 08:59 Last Admin: 05/11/20 07:37 Dose: 2 sprays Documented by: Furosemide (Furosemide 20 Mg Tab) 20 mg PO DAILY [facility] Stop: 06/10/20 08:59 Last Admin: 05/11/20 07:37 Dose: 20 mg Documented by: Losartan Potassium (Losartan Potassium 25 Mg Tab) 25 mg PO DAILY [facility] Stop: 06/10/20 08:59 Last Admin: 05/11/20 07:37 Dose: 25 mg Documented by: Multivitamins/Folic Acid/Vitamin C (Multivitamin Chewable Tab) 1 tab PO BID [facility] Stop: 06/09/20 20:59 Last Admin: 05/11/20 07:37 Dose: 1 tab Documented by: Spironolactone (Spironolactone 12.5 Mg Tab) 12.5 mg PO DAILY [facility] Stop: 06/10/20 08:59 Last Admin: 05/11/20 07:37 Dose: 12.5 mg Documented by: (1) Chest pain Chest pain type: unspecified Qualified Code(s): R07.9 - Chest pain, unspecified (2) Hypertension Hypertension type: essential hypertension Qualified Code(s): I10 - Essential (primary) hypertension
--- NOTE | 2020-05-12 08:07 | Discharge Summary ---
Date of Service May 12, 2020 Admission HPI Per Admitting Provider This is a 64 y/o female with a PMH of non-ischemic cardiomyopathy in 2007, CHF, HTN, dyslipidemia, and prior gastric bypass surgery who present to the ED today with progressive chest pressure and tightness over the past five days. Pt reports that she has not been feeling right for the past few weeks, mainly being more tired than usual and "wonky" (lightheaded) at times, especially with position changes. She saw her cardiology provider on 04/29/20 and losartan was increased from 12.5 mg to 25 mg daily. She did not noticed significant improvement with the med change. Last (5 days ago), she started with intermittent chest pressure and tightness although denies overt chest pain. This discomfort is worse with exertion. She has also noted REAL, especially with doing steps, and occasional orthopnea. Not sleeping well recently but unsure specifically why. She has noted hot flashes and "overheating" recently but not sure that it's associated with her other symptoms. She denies cough, nasal congestion, ST, or peripheral edema. She has ongoing sinus issues. Chronic headaches although worse the past month. She was also recently prescribed phentermine, which she was taking 4 mg at 4 pm daily. However, she was advised to stop this by cardiology at her last appointment, which she has done. Admission Exam Per Admitting Provider Constitutional: WD/WN, vitals as above + not well nourished and no acute distress Eyes: + anicteric sclerae; no corneal abnormality Neck: trachea midline Respiratory: no respiratory distress and no labored breathing Auscultation: lungs clear to auscultation bilaterally; no rales, no rhonchi and no wheezes Cardiovascular: Rate/Rhythm: regular rate and regular rhythm Heart Sounds: no gallop, no murmur and no cardiac rub Vessels: dorsalis pedis pulses present and radial pulses present; no carotid bruit Extremities: no calf tenderness and no pedal edema Gastrointestinal (Abdomen): Inspection/Auscultation: normal bowel sounds; abdomen not distended Percussion/Palpation: abdomen soft; abdomen nontender Musculoskeletal: Head/Neck/Chest: normocephalic, head atraumatic and neck supple Extremities: no cyanosis and no clubbing Skin: normal turgor; no jaundice Neurologic: moves all extremities; no focal motor deficits Psychiatric: A+Ox3, euthymic affect Principal Diagnosis Chest pain-no ACS and negative dobutamine stress echo, hypertension Discharge Exam Constitutional well developed, well nourished and + obese; not ill appearing Eyes PERRL, conjunctivae normal, anicteric sclerae ENMT external ear and nose normal, oropharynx normal Neck trachea midline, no thyromegaly Respiratory no respiratory distress Auscultation: lungs clear to auscultation bilaterally Cardiovascular Rate/Rhythm: regular rate and regular rhythm Heart Sounds: no murmur Extremities: no edema Gastrointestinal (Abdomen) Inspection/Auscultation: normal bowel sounds; abdomen not distended Percussion/Palpation: abdomen soft; abdomen nontender Psychiatric A+Ox3, euthymic affect Lymphatic no cervical or axillary lymphadenopathy Discharge Data Allergies Allergy/AdvReac Type Severity Reaction Status Date / Time Sulfa (Sulfonamide Allergy Severe EDEMA OF Verified 05/10/20 19:03 Antibiotics) FACE, LIPS, TONGUE amoxicillin Allergy Intermediate HIVES Verified 05/10/20 19:03 Penicillins Allergy Intermediate SWELLING Verified 05/10/20 19:03 OF BOTTOM LIP, HIVES sertraline Allergy Mild Rash Verified 05/10/20 19:03 bupropion [From Wellbutrin] Allergy Unknown ON [facility] MED Verified 05/10/20 19:03 LIST silver sulfadiazine Allergy Unknown UNKNOWN--NOT Verified 05/10/20 19:03 ON [facility] LIST [id number]-[id number] Reductase AdvReac Intermediate Muscle Pain Verified 05/10/20 19:03 Inhibitor Consultations 05/10/20 15:15 ED Decision to Admit Stat 05/10/20 19:32 Consult Cardiology Routine Hospital Course (1) Chest pain: Non-specific chest pressure x 5 days -worse on the day of admission. Unclear if cardiac etiology but pt with history of CHF that has been well-managed Serial EKG and cardiac enzymes are unremarkable ECHO showed: Normal LV chamber size with mild concentric LVH, low normal LV systolic function with borderline global hypokinesis EF of 50 to 55%, grade 1 diastolic dysfunction and no significant valvular pathology. Appreciate cardiology input and recommendation Consult cardiology - will make pt NPO after midnight for potential additional work-up tomorrow pending results Dobutamine stress echo did not show any ischemia and/or arrhythmias with normal heart rate and blood pressure response to infusion and chest pain was not reported at peak heart rate Will be discharged home this afternoon (2) History of CHF (congestive heart failure): - Continue outpatient regimen - losartan, coreg, furosemide and aldactone (3) Dyslipidemia: Statin intolerance so not currently taking any medications for this (4) Hypertension: Her losartan will be on hold She will have a follow-up appointment with battery plate assembler in 1 week (5) Anxiety: - Continue Celexa as previously taking Patient seen and examined with collaborating physician, Dr. Mcghee. Plan of care discussed and as outlined above. DVT Prophylaxis: Lovenox Code Status: Full code Will be discharged home this afternoon Total Time Total Time Spent Total Time Spent (In Minutes): 35 minutes Total Time Includes: Examination of the Patient, Discharge Planning, Medication Reconciliation and Communication With Other Providers Discharge Plan Discharge Items Patient Disposition: Home - Self-Care Reason For Visit: CHEST PAIN Discharge Diagnosis: Chest pain-no ACS and negative dobutamine stress echo, hypertension Condition on Discharge: Good Activity: Resume your previous activity Non-emergency contact: Primary Care Provider Call non-emergency contact if: you have any medication questions and your symptoms worsen Follow-up/Referrals: Blaine Valladares [Physician High Frequency Mill Operator] - (Date & Time 05/18/2020 11:00 AM Provider YANCY CasanovaC Department Cardiology, [facility] ) Ajit Richards MD [Primary Care Provider] - (Date & Time 05/16/2020 11:00 AM Provider Pj Fuentes DO Department Family Practice [facility] ) Diet: Heart Healthy Addtl Attending Provider Instructions: Your losartan is on hold now Please do not restart the medications you are being seen by a battery plate assembler Pending Studies at Discharge: No Stand-Alone Forms: My [employer], Smoking Cessation Medications and DC Order Prescriptions: Continued carvedilol 25 mg tablet 25 mg PO BID RF: 0 fexofenadine 180 mg Tablet 180 mg PO DAILY RF: 0 spironolactone 25 mg tablet 12.5 mg PO DAILY RF: 0 citalopram 20 mg tablet 20 mg PO BID RF: 0 furosemide 20 mg tablet 20 mg PO DAILY RF: 0 clobetasol 0.05 % ointment See Rx Instructions .ROUTE .COMPLEX RF: 0 fluticasone propionate 50 mcg/actuation spray,suspension 2 spray INTRANASAL DAILY RF: 0 Flintstones Tab Chew 100 mcg Tablet,Chewable 1 tab PO BID RF: 0 Discontinued losartan 25 mg tablet 25 mg PO DAILY RF: 0 Discharge Orders: Discharge Order (Routine); Ordered 05/11/20 Ordered By: Carole Amor/Other Patient Handouts: Eating Heart-Healthy Foods Admission Data Admit Date/Time: 05/10/20 16:26 Attending Provider: Carole Bonilla Admit Provider: Merced Mcghee Primary Care Provider: Ajit Richards Other Providers: Merced Mcghee ; Freedom Rios Other Interventions: Discharge Summary Assessment (RN) Last Done: 05/11/20 13:18
== END 2020-05-11 13:43 | disposition home or self-care (01) ==
LOC: 2W 13:05 → ED 13:05 → SUATTDRO 16:26 → 2W 19:30